=== PATIENT | female | born 1985 | race Native Hawaiian/Other Pacific Islander ===

== ENCOUNTER 2016-08-13 12:06 | Outpatient (CLI) | payer BC ==
[2016-08-13 13:56] LABS: PARTIAL THROMBOPLASTIN TIME 23.4 SECONDS (24.5-33.6)
== END 2016-08-13 21:40 | disposition home or self-care (01) ==
LOC: LABW 12:06
PROVIDERS: Nurse Practitioner Family
DX: M79.661 Pain in right lower leg (principal)
CPT/HCPCS: 36415; 85379; 85610; 85730